=== PATIENT | female | born 2000 | race Caucasian/White ===

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

== ENCOUNTER → 2018-01-18 | Outpatient (CLI) | payer BC, OTHER ==
--- NOTE | 2018-01-18 15:27 | DIAGNOSTIC IMAGING REPORT ---
LEFT KNEE INCLUDING BILATERAL STANDING AP VIEWS (4 VIEWS) CLINICAL HISTORY: LEFT KNEE PAIN COMPARISON: April 2017 DISCUSSION: There are postsurgical changes of a prior left knee ACL repair. There are no acute fractures. There are no erosive or destructive changes. IMPRESSION: Postsurgical changes of a prior ACL repair on the left. No acute fractures. No erosive or destructive lesions are visualized. Electronically signed by: Jhon Silva M.D. 01/18/2018 3:25 PM Dictated Date/Time: 01/18/2018 3:24 PM
== END | disposition home or self-care (01) ==
LOC: C.RDSM 15:07
PROVIDERS: ATTEND Physician Assistant
DX: M25.562 Pain in left knee (principal)